=== PATIENT | male | born 1965 | race African-American/Black ===

== ENCOUNTER 2017-07-09 21:06 | Emergency (ER) | payer SELFPAY, OTHER ==
[2017-07-09] MEDS: diphenhydrAMINE HCL 25 MG CAPSULE PO (22:14)
[2017-07-09] MEDS: FAMOTIDINE 20 MG TABLET. PO (22:14)
[2017-07-09] MEDS: methylPREDNISolone SOD SUCC PF 125 MG/2 ML VIAL. IM (22:16)
== END 2017-07-09 22:32 | disposition home or self-care (01) ==
LOC: ER 22:32
DX: T78.1XXA Other adverse food reactions, not elsewhere classified, initial encounter (principal); R22.0 Localized swelling, mass and lump, head; I10 Essential (primary) hypertension; E78.00 Pure hypercholesterolemia, unspecified; X58.XXXA Exposure to other specified factors, initial encounter
CPT/HCPCS: 96372; 99283; J2930; Q0163

== ENCOUNTER → 2017-07-21 | Outpatient (CLI) | payer SELFPAY ==
[2017-07-21 11:25] LABS: ADD MAN DIFF? NO
[2017-07-21 11:29] LABS: BASO % 1 % (0-3); EOS # 0.1 x10^3/uL (0.0-0.7); EOS % 1 % (0-3); HEMATOCRIT 41.1 % (39.0-53.0); HEMOGLOBIN 13.8 g/dL (13.0-17.5); LYMPH # 1.9 x10^3/uL (1.0-4.8); LYMPH % 27 % (24-48); MEAN CORPUSCULAR HEMOGLOBIN 31 pg (25-35); MEAN CORPUSCULAR HGB CONC 34 g/dL (31-37); MEAN CORPUSCULAR VOLUME 93 fL (79-100); MONO # 0.7 x10^3/uL (0.0-1.1); MONO % 10 % (0-9); NEUT # 4.4 x10^3uL (1.8-7.7); NEUT % 62 % (31-73); PLATELET COUNT 253 x10^3/uL (140-400); RED BLOOD COUNT 4.41 x10^6/uL (4.30-5.70); RED CELL DISTRIBUTION WIDTH 13.7 % (11.5-14.5)
[2017-07-21 11:53] LABS: ALBUMIN 3.9 g/dL (3.4-5.0); ALBUMIN/GLOBULIN RATIO 1.1 (1.0-1.7); ALK PHOS 66 U/L (46-116); ALT (SGPT) 27 U/L (16-63); ANION GAP 8 (6-14); AST (SGOT) 12 U/L (15-37); BLOOD UREA NITROGEN 17 mg/dL (8-26); BUN/CREATININE RATIO 19 (6-20); CALCIUM 9.3 mg/dL (8.5-10.1); CARBON DIOXIDE 30 mmol/L (21-32); CHLORIDE 104 mmol/L (98-107); CHOLESTEROL 119 mg/dL (0-200); CREATINE KINASE 155 U/L (39-308); CREATININE 0.9 mg/dL (0.7-1.3); GFR 108.5; GLUCOSE 87 mg/dL (70-99); HDLC 50 mg/dL (40-60); LDLC 53 mg/dL (0-100); NON-HDL CHOLESTEROL 69 mg/dL (0-129); POTASSIUM 3.9 mmol/L (3.5-5.1); SODIUM 142 mmol/L (136-145); TOTAL BILIRUBIN 0.4 mg/dL (0.2-1.0); TOTAL PROTEIN 7.6 g/dL (6.4-8.2); TRIGLYCERIDES 78 mg/dL (0-150); VLDLC 16 mg/dL (0-40)
[2017-07-21 11:56] LABS: CHOLESTEROL/HDL RATIO 2.4
[2017-07-21 12:03] LABS: THYROID STIM HORMONE (TSH) 0.899 uIU/mL (0.358-3.74)
[2017-07-21 12:06] LABS: PROSTATE SPECIFIC ANTIGEN 1.98 ng/mL (0.00-4.00)
== END | disposition home or self-care (01) ==
LOC: LAB 10:55
DX: Z12.5 Encounter for screening for malignant neoplasm of prostate (principal); I10 Essential (primary) hypertension; E78.5 Hyperlipidemia, unspecified; E55.9 Vitamin D deficiency, unspecified; T78.40XD Allergy, unspecified, subsequent encounter; X58.XXXD Exposure to other specified factors, subsequent encounter
CPT/HCPCS: 36415; 80053; 80061; 82306; 82550; 84443; 85025; G0103

== ENCOUNTER 2021-02-01 08:40 | Emergency (ER) | payer SELFPAY ==
[~2021-02-01] VITALS: Ht 177.8 cm; Wt 71.2 kg
[~2021-02-01 08:40] MED LIST: DICL100T PO; METO10TA81 PO; NAPR-682 PO; ORPH100T PO; TRAM1TAB4 PO
--- NOTE | 2021-02-01 09:14 | PHYS DOC ---
Past Medical History Past Medical History: No Pertinent History, High Cholesterol, Hypertension Past Surgical History: No Surgical History, Other Additional Past Surgical Histo: HERNIA Smoking Status: Never Smoker Alcohol Use: None Drug Use: None General Adult EDM: Chief Complaint: ABDOMINAL PAIN HPI: HPI: Patient is a 55 year old male who presents with generalized mid abdominal pain, with nausea vomiting and diarrhea. Symptoms began about 2 days ago. He felt better briefly last night but symptoms returned early this morning. He denies hematemesis, melena, hematochezia. He denies fever but has had chills. He denies urinary symptoms. He has been trying to keep fluids and food down without much success, especially since around 3 AM. He denies recent antibiotic use, denies recent travel, denies recent sick contacts. He has had a previous abdominal hernia repair, denies any prior history of abdominal adhesions or bowel obstructions. Review of Systems: Review of Systems: Constitutional: Chills, no documented fever HENT: Mild sore throat with vomiting only Respiratory: Denies cough or shortness of breath. [] Cardiovascular: Denies chest pain or edema. [] GI: Reports abdominal pain, nausea, vomiting and diarrhea. Denies hematochezia, melena or hematemesis : Denies urinary symptoms Musculoskeletal: Denies back pain or joint pain. [] Integument: Denies rash. [] Neurologic: Denies headache, dizziness or weakness Psychiatric: Denies depression or anxiety. [] Heart Score: C/O Chest Pain: No Risk Factors: Risk Factors: DM, Current or recent (<one month) smoker, HTN, HLP, family history of CAD, obesity. Risk Scores: Score 0 - 3: 2.5% MACE over next 6 weeks - Discharge Home Score 4 - 6: 20.3% MACE over next 6 weeks - Admit for Clinical Observation Score 7 - 10: 72.7% MACE over next 6 weeks - Early Invasive Strategies Allergies: Allergies: Allergies Coded Allergies Type Severity Reaction Last Updated Verified No Known Drug Allergies 06/21/14 No Physical Exam: PE: Constitutional: Well developed, well nourished, no acute distress, non-toxic appearance. He does appear to be somewhat uncomfortable. HENT: Normocephalic, atraumatic, bilateral external ears normal, Dukas membranes are moist. Oropharynx is patent and clear. Eyes: Sclera are clear and nonicteric. Neck: Normal range of motion, no tenderness, no adenopathy, trachea midline Cardiovascular:Heart rate regular rhythm, no murmur, +2 radial and posterior tibial pulses bilaterally Lungs & Thorax: Bilateral breath sounds clear to auscultation [] Abdomen: Soft, nondistended, normal bowel sounds noted, epigastric and periumbilical tenderness to palpation, mild voluntary guarding, no rebound tenderness, no pulsatile mass, no audible bruit, no CVA tenderness, no flank or abdominal ecchymoses Skin: Warm, dry, no erythema, no rash. [] Back: No tenderness, no CVA tenderness. [] Extremities: No tenderness, no cyanosis, no clubbing, ROM intact, no edema. [] Neurologic: Alert and oriented X 3, moves all 4 extremities equally, gait steady Psychologic: Affect normal, judgement normal, mood normal. [] EKG: EKG: [] Radiology/Procedures: Radiology/Procedures: IMAGING REPORT Signed PATIENT: VIRI SALCEDO LACCOUNT: [id number] : 1965 LOCATION: ER AGE: 55 SEX: M EXAM STATUS: REG ER ORD. PHYSICIAN: LUIS ARTEAGA DO REASON: abdominal pain, vomiting, diarrhea PROCEDURE: CT ABD PELV W/ IV CONTRST ONLY CT scan of the abdomen and pelvis with contrast 02/02/2020 CLINICAL HISTORY: Abdominal pain. Vomiting. Diarrhea. TECHNIQUE: After the intravenous administration of 75 cc of Omnipaque 300 only, contiguous, 5 mm axial sections were obtained through the abdomen and pelvis. One or more of the following individualized dose reduction techniques were utilized for this study: 1. Automated exposure control. 2. Adjustment of the mA and/or kV according to patient size. 3. Use of iterative reconstruction technique. FINDINGS: Comparison study is dated 04/06/2018. No previous imaging studies are available for comparison. The absence of oral contrast material limits the study for the detection of bowel pathology. The liver, spleen, pancreas, adrenal glands and left kidney are within normal limits. A 1.2 cm rounded low-attenuation lesion is seen involving the mid/lower pole of the right kidney. This likely represents a cyst. No further imaging evaluation is recommended. Atherosclerotic calcification abdominal aorta is seen. The abdominal aorta tap ers normally. The gallbladder is slightly contracted. No free fluid or free air is seen within the abdomen. There is no evidence of bowel obstruction. The appendix is well-visualized and is within normal limits. 2.8 cm somewhat oval- shaped area somewhat decreased attenuation is seen within the fat within the superior right inguinal region which has not significantly changed since p revious examination. This may represent a lymphangioma. Images through the pelvis demonstrate the urinary bladder distended with urine. Mild diffuse wall thickening of the urinary bladder is again seen which likely reflects hypertrophy. Calcifications are seen within the pelvis consistent with phleboliths. The prostate gland is enlarged likely related to BPH. No free fluid is seen. Minimal S-shaped curvature of the thoracolumbar spine is noted. IMPRESSION: No acute abnormality is seen. Electronically signed by: Jose A Faulkner MD (02/01/2021 12:10 PM) [id number] DICTATED and SIGNED BY: JOSE A FAULKNER MD DATE: 02/01/21 [id number] 0 Course & Med Decision Making: Course & Med Decision Making Pertinent Labs and Imaging studies reviewed. (See chart for details) The patient is given IV fluids, IV Zofran x2, IV morphine, IV Toradol. He has produced no diarrhea here. He was able ultimately to keep down oral fluids. He has a nonsurgical abdominal exam. ED work-up is unremarkable for any acute life-threatening process at this time. He feels comfortable going home. I discussed home care instructions including bland diet, drinking plenty of clear fluids. No current indication for admission. He is prescribed Zofran for home. He is given very strict return precautions. He verbalizes understanding of instructions provided. Dragon Disclaimer: Dragon Disclaimer: This electronic medical record was generated, in whole or in part, using a voice recognition dictation system. Departure Departure Impression: Primary Impression: Nausea vomiting and diarrhea Disposition: 01 HOME / SELF CARE / HOMELESS Condition: STABLE Referrals: TOD CARMEN MD (PCP) Patient Instructions: Nausea and Vomiting, Viral Gastroenteritis Additional Instructions: Use the medication as needed and as directed. Eat a very bland diet, plenty of clear fluids. Return immediately to the ER for severe abdominal pain, fever of 100.4 or higher, vomiting blood, bloody stool, evidence of dehydration or any other concerns. Please follow-up with your primary care physician. Scripts Ondansetron Hcl (ZOFRAN) 4 Mg Tablet 4 MG PO PRN TID PRN for VOMITING, #20 EA nausea/vomiting Prov: LUIS ARTEAGA DO 02/01/21 LUIS ARTEAGA DO Feb 01, 2021 09:14
[2021-02-01] MEDS ORDERED: ONDANSETRON PF 4 MG/2 ML VIAL. IVP ONE ×2 (09:15→12:45)
[2021-02-01] MEDS ORDERED: IV NORMAL SALINE 1000ML BAG 1,000 ML IV ONE (09:15)
[2021-02-01] MEDS ORDERED: MORPHINE SULFATE 4 MG/ML INJ. IVP ONE (09:15)
[2021-02-01 09:48] LABS: BASO # 0.1 x10^3/uL (0.0-0.2); BASO % 1 % (0-3); EOS % 0 % (0-3); HEMATOCRIT 39.9 % (39.0-53.0); HEMOGLOBIN 13.9 g/dL (13.0-17.5); LYMPH # 0.9 x10^3/uL (1.0-4.8); LYMPH % 10 % (24-48); MEAN CORPUSCULAR HEMOGLOBIN 33 pg (25-35); MEAN CORPUSCULAR HGB CONC 35 g/dL (31-37); MEAN CORPUSCULAR VOLUME 95 fL (79-100); MONO # 0.4 x10^3/uL (0.0-1.1); MONO % 4 % (0-9); NEUT # 7.7 x10^3/uL (1.8-7.7); NEUT % 86 % (31-73); PLATELET COUNT 433 x10^3/uL (140-400); RED BLOOD COUNT 4.22 x10^6/uL (4.30-5.70); RED CELL DISTRIBUTION WIDTH 13.8 % (11.5-14.5)
[2021-02-01 10:16] LABS: ALBUMIN 4.1 g/dL (3.4-5.0); DIRECT BILIRUBIN 0.1 mg/dL (0.0-0.2); TOTAL BILIRUBIN 0.5 mg/dL (0.2-1.0); TOTAL PROTEIN 7.6 g/dL (6.4-8.2)
[2021-02-01 11:03] LABS: BILIRUBIN,URINE NEGATIVE (NEG); CLARITY,URINE CLEAR; COLOR,URINE YELLOW; NITRITE,URINE NEGATIVE (NEG); PROTEIN,URINE 30 mg/dL (NEG-TRACE)
[2021-02-01 11:18] LABS: BACTERIA,URINE 0 /HPF (0-FEW); WBC,URINE 0 /HPF (0-4)
[2021-02-01 11:26] LABS: CALCIUM 9.2 mg/dL (8.5-10.1); CREATININE 1.2 mg/dL (0.7-1.3); GFR 76.6; POTASSIUM 3.6 mmol/L (3.5-5.1)
[2021-02-01] MEDS ORDERED: CONTRAST GIVEN. MC PRN (11:45)
[2021-02-01] MEDS ORDERED: IOHEXOL 300 MG/ML 100ML VIAL. IV ONE (11:45)
--- NOTE | 2021-02-01 12:13 | RAD ---
CT scan of the abdomen and pelvis with contrast 02/02/2020 CLINICAL HISTORY: Abdominal pain. Vomiting. Diarrhea. TECHNIQUE: After the intravenous administration of 75 cc of Omnipaque 300 only, contiguous, 5 mm axia l sections were obtained through the abdomen and pelvis. One or more of the following individualized dose reduction techniques were utilized for this study: 1. Automated exposure control. 2. Adjustment of the mA and/or kV according to patient size. 3. Use of iterative reconstruction technique. FINDINGS: Comparison study is dated 04/06/2018. No previous imaging studies are available for comparison. The absence of oral contrast material limits the study for the detection of bowel pathology. The liver, spleen, pancreas, adrenal glands and left kidney are within normal limits. A 1.2 cm rounde d low-attenuation lesion is seen involving the mid/lower pole of the right kidney. This likely repres ents a cyst. No further imaging evaluation is recommended. Atherosclerotic calcification abdominal aorta is seen. The abdominal aorta tapers normally. The gallb ladder is slightly contracted. No free fluid or free air is seen within the abdomen. There is no evid ence of bowel obstruction. The appendix is well-visualized and is within normal limits. 2.8 cm somewh at oval-shaped area somewhat decreased attenuation is seen within the fat within the superior right i nguinal region which has not significantly changed since previous examination. This may represent a l ymphangioma. Images through the pelvis demonstrate the urinary bladder distended with urine. Mild diffuse wall thi ckening of the urinary bladder is again seen which likely reflects hypertrophy. Calcifications are se en within the pelvis consistent with phleboliths. The prostate gland is enlarged likely related to BP H. No free fluid is seen. Minimal S-shaped curvature of the thoracolumbar spine is noted. IMPRESSION: No acute abnormality is seen. Electronically signed by: Jose A Faulkner MD (02/01/2021 12:10 PM) [id number]
[2021-02-01] MEDS ORDERED: KETOROLAC 15 MG/ML VIAL. IVP ONE (12:45)
[2021-02-01] MEDS ORDERED: ONDA4TAB7 PO (15:09)
[2021-02-01] MEDS ORDERED: HYDROmorphone 2 MG/ML VIAL IVP ONE (15:15)
[2021-02-01 15:41] VITALS: BP 147/107
== END 2021-02-01 15:49 | disposition home or self-care (01) ==
LOC: ER 08:40
DX: R11.2 Nausea with vomiting, unspecified (principal); R19.7 Diarrhea, unspecified; R10.84 Generalized abdominal pain; E78.00 Pure hypercholesterolemia, unspecified; I10 Essential (primary) hypertension
CPT/HCPCS: 36415; 74177; 80048; 80076; 81001; 83690; 85025; 96361; 96374; 96375; 96376; 99285; J1885; J2270; J2405; J7030; Q9967